=== PATIENT | male | born 1945 | race Caucasian/White ===

== ENCOUNTER → 2018-07-28 11:16 | Outpatient (CLI) | payer OTHER, SELFPAY ==
--- NOTE | 2018-07-28 11:19 | DI.US.S_ITS ---
PROCEDURE: US PERIPH VENOUS LOW EXTREM LT INDICATIONS: LOCALIZED SWELLING OF LEFT LEG/HX OF DVT TECHNIQUE: Real-time imaging, as well as color and pulse Doppler interrogation, were performed of the lower extremity deep veins from the inguinal ligament to the popliteal fossa. COMPARISON: [facility], , PVE UNILATERAL LEFT, 03/08/2017, 11:32. FINDINGS: The common femoral, femoral and popliteal veins are normally compressible, and free of intraluminal thrombus. Color and pulse Doppler demonstrate normal phasic intraluminal flow. There is normal augmentation response to distal compression maneuver. IMPRESSION: No evidence of deep vein thrombosis within the left lower extremity. Dictated by: Jonas Martinez M.D. on 07/28/2018 at 10:56 Approved by: Jonas Martinez M.D. on 07/28/2018 at 10:58
[2018-07-28 11:46] LABS: D Dimer 398 ng/mL (<230)
== END ==
PROVIDERS: Family Provider Family Medicine; PCP Family Medicine; Visit Provider Family Medicine
DX: R22.42 Localized swelling, mass and lump, left lower limb (principal); Z86.718 Personal history of other venous thrombosis and embolism
CPT/HCPCS: 85379; 93971

== ENCOUNTER 2018-11-24 12:45 | Day surgery (SDC) | payer OTHER, SELFPAY ==
[2018-11-24 13:11] VITALS: BP 184/92; PULSE 76; RESP 17; TEMP 36.3; O2SAT 99; BMI 30.1
[2018-11-24] MEDS: HYOSCYAMINE 0.125 MG TABLET PO (13:19)
[2018-11-24] MEDS: SODIUM CHLORIDE 0.9% 1,000 ML 200 ML IV (13:20)
--- NOTE | 2018-11-24 13:46 | PM.PREOP ---
Pre-operative Note Interval Note History & Physical reviewed/Exam performed by Physician: Yes Changes to H&P: No ASA Class (for procedural sedation): II
--- NOTE | 2018-11-24 13:46 | PM.OP.ENDO ---
Operative Date/Time/Diagnoses Date of procedure: 11/24/18 Time of procedure: 13:46 Pre-op diagnosis: 1. History of colon polyps 2. Screening for colon cancer Post-op diagnosis: other (Normal colonoscopy) Procedure & Clinicians Study performed: Colonoscopy Same procedure as scheduled: Yes Indications: 1. History of colon polyps 2. Screening for colon cancer Surgeon: Marybeth Daugherty Procedure Notes SCOAP/Timeout: 13:52 Procedure in detail: ENDOSCOPIST: Marybeth Daugherty MD Sedation RN: Aysha Lake RN Sedation start time: 1:52 p.m. Sedation and time: 2:21 p.m. PROCEDURE: Colonoscopy INDICATIONS: 1. History of colon polyps 2. Screening for colon cancer MEDICATION: Levsin 0.125 mg sublingual, incremental doses of Versed and fentanyl until appropriate level sedation achieved. ASA CLASS: 2 CECAL WITHDRAWAL TIME: 10 minutes COMPLICATIONS: None. EXTENT OF PROCEDURE: Cecum. QUALITY OF PREP: Good with portions of liquid stool. PROCEDURE: Prior to insertion of the colonoscope, a digital rectal examination was accomplished with circumferential palpation of the distal rectal mucosa without significant findings being noted. The high-definition colonoscope was passed into the rectum in the usual fashion and advanced over to the cecum without difficulty. The ileocecal valve, appendiceal stoma, and medial wall all could be inspected and no abnormalities were seen. ASCENDING COLON: As the colonoscope was withdrawn, care was taken to expose and inspect the haustral folds and no abnormalities were seen. HEPATIC FLEXURE: Normal no polyps, diverticula or other abnormalities. TRANSVERSE COLON: Normal no polyps, diverticula or other abnormalities. DESCENDING COLON: Normal no polyps, diverticula or other abnormalities. SIGMOID COLON: Normal no polyps, diverticula or other abnormalities. RECTUM: Normal. J maneuver was produced. There was no significant perianal disease. The J maneuver was broken. The remainder of the rectum was inspected and there was no external hemorrhoid disease. The scope was withdrawn. IMPRESSION: 1. Normal colonoscopy PLAN: 1. Repeat colonoscopy in 5 years secondary to history of colon polyps. The possibility of a missed lesion including a malignancy has been discussed with the patient previously. Potential alarm symptoms have been discussed and should be reported immediately. Scope withdrawal time: 10 Sedation minutes: 19 Specimen(s): none sent Complications: none Impression: As above Post-procedure Recommendations: Colonscopy in 5 years Follow up: as needed Disposition: PACU
[2018-11-24] MEDS: fentaNYL 250 MCG/5 ML INJ IV (14:23)
[2018-11-24] MEDS: MIDAZOLAM 5 MG/5 ML VIAL IV (14:23)
[2018-11-24 14:24] VITALS: BP 119/78; PULSE 67; RESP 20; TEMP 36.2; O2SAT 96
[2018-11-24 14:29] VITALS: BP 120/84; PULSE 78; RESP 12; O2SAT 95
[2018-11-24 14:34] VITALS: BP 128/91; PULSE 68; RESP 15; O2SAT 96
[2018-11-24 14:42] VITALS: BP 128/78; PULSE 63; RESP 15; TEMP 36.1; O2SAT 97
== END 2018-11-24 14:57 ==
LOC: ENDO 12:47
PROVIDERS: PCP Family Medicine; Visit Provider Student in an Organized Health Care Education/Training Program
PROC: 0DJD8ZZ Inspection of Lower Intestinal Tract, Via Natural or Artificial Opening Endoscopic (ICD-10-PCS; CPT 45378; principal; 2018-11-24 14:00)
DX: Z86.010 Personal history of colon polyps (principal)
CPT/HCPCS: 45378; J2250; J3010

== ENCOUNTER 2021-04-17 09:18 | Emergency (ER) | payer MEDICARE, OTHER, SELFPAY ==
[2021-04-17] VITALS (10 sets, daily range): BP systolic 137–158; BP diastolic 71–88; PULSE 68–77; RESP 16–18; TEMP 36.7; O2SAT 96–99
--- NOTE | 2021-04-17 10:08 | DI.CT.S_ITS ---
PROCEDURE: CT ABDOMEN PELVIS W CON INDICATIONS: Mid abdominal pain TECHNIQUE: After the administration of IV contrast, axial sections were acquired from the lung bases to the pubic symphysis. Coronal and sagittal reformats were performed. For radiation dose reduction, the following was used: automated exposure control, adjustment of mA and/or kV according to patient size. COMPARISON: None. FINDINGS: Image quality: Excellent. Lung bases: Unremarkable. Heart: Coronary artery calcifications. ABDOMEN: Liver: Unremarkable. Gallbladder: Unremarkable. Biliary ducts: Unremarkable. Pancreas: Unremarkable. Spleen: Unremarkable. Adrenal Glands: Unremarkable. Kidneys and Ureters: Unremarkable. Stomach and Bowel: Multiple dilated fluid-filled loops of small bowel. There is a gradual transition in the right lower quadrant. There is a small amount of free fluid in the pelvis. The colon is not distended. There are a few colonic diverticuli. The appendix is not dilated. Stomach is prominent. Peritoneum: No ascites. No pneumoperitoneum. Ventral Wall: No hernia. Abdominal Nodes: No retroperitoneal or mesenteric adenopathy by size criteria. Vessels: Aorta and inferior vena cava are normal in size. Mild calcified atherosclerotic plaque. PELVIS: Pelvic Organs: Unremarkable. Bladder: Unremarkable. Pelvic Nodes: No enlarged lymph nodes. Miscellaneous: No definite inguinal hernias are seen. Bones: Grade 1 anterolisthesis of L5 on S1. Bilateral L5 pars defect. No compression fracture. Right hip arthroplasty. Moderate left hip DJD. IMPRESSION: 1. Small bowel obstruction. 2. Trace reactive fluid in the pelvis. No pneumoperitoneum. Comment: Findings were discussed with Luciano Mireles at the time of dictation. Dictated by: Josh Valdes M.D. on 04/17/2021 at 11:54 Approved by: Josh Valdes M.D. on 04/17/2021 at 12:05
--- NOTE | 2021-04-17 10:09 | ED.ABDPAIN ---
HPI - Abdominal Pain General Chief Complaint: Abdominal Pain Stated Complaint: abd pain since last night Time Seen by Provider: 04/17/21 09:51 Source: patient Mode of arrival: Family Vehicle History of Present Illness HPI narrative: Patient here with . Onset periumbilical diffuse sharp pain 10:00 p.m. last night, 12 hours ago. Has improved significantly. [place] very uncomfortable last night. Did not sleep. Had diaphoresis and did vomit. No no no chest pain. No no no back pain. No syncope but feels very lightheaded. No prior abdominal surgical history other than colonoscopy. No history of heart attacks. No recent food intolerance. Related Data Home Medications Medication Instructions Recorded Confirmed amlodipine 5 mg tablet 5 mg PO DAILY 11/24/18 11/24/18 aspirin 81 mg tablet,delayed 81 mg PO DAILY 11/24/18 11/24/18 release (Aspirin Low Dose) metoprolol tartrate 25 mg tablet 25 mg PO DAILY 11/24/18 11/24/18 rosuvastatin 10 mg tablet 10 mg PO DAILY 11/24/18 11/24/18 Allergies Allergy/AdvReac Type Severity Reaction Status Date / Time lisinopril AdvReac Intermediate Cough Verified 11/24/18 13:05 BEE VENOM Allergy Severe CARRIES Uncoded 11/24/18 13:05 EPI PEN Review of Systems Review of Systems Narrative: GENERAL: Denies chills, fatigue, malaise, fever, sweats. HEENT: Denies sinus pain, ear pain, sore throat RESPIRATORY: Denies dyspnea, cough CARDIOVASCULAR: Denies chest pain, palpitations GASTROINTESTINAL: Positive for nausea, vomiting, abdominal pain : Denies dysuria, frequency, hematuria MUSCULOSKELETAL: denies muscle or bony pain SKIN: Denies rash, skin lesions NEUROLOGIC: Denies weakness, numbness ROS Unobtainable: All systems reviewed & are unremarkable except as noted in HPI and below Patient History Social History household members: spouse Smoking Status: Former smoker Smoking Status: Former smoker alcohol intake frequency: 0-2 drinks per day Alcohol type: beer and wine Substance Use Type: does not use Exam Narrative Exam Narrative: GENERAL: in no distress, not toxic not dyspneic HEAD: Normocephalic. EYES: Pupils equal round No scleral icterus. ENT: Mucous membranes moist. NECK: Trachea midline. CARDIOVASCULAR: Regular rate and rhythm without murmurs RESPIRATORY: Clear to auscultation. Breath sounds equal bilaterally. No wheezes, rales, or rhonchi. GASTROINTESTINAL: Abdomen soft, mild periumbilical and epigastric tenderness. No peritoneal signs. Bowel sounds present. No CVA tenderness. EXTREMITIES: No gross deformities. BACK: No flank tenderness. NEURO: AOx4. SKIN: Warm and dry PSYCH: Not anxious, is cooperative Initial Vital Signs Initial Vital Signs: Vital Signs Temperature 98.1 F 04/17/21 09:30 Pulse Rate 77 04/17/21 09:30 Respiratory Rate 18 04/17/21 09:30 Blood Pressure 158/81 H 04/17/21 09:30 Pulse Oximetry 98 04/17/21 09:30 Course Course Course Narrative: No new issues during course of stay Orders Ordered: ED Orders 04/17/21 09:44 EKG-12 Lead Stat 04/17/21 09:57 Complete Blood Count AUTO DIFF Stat Comprehensive Metabolic Panel Stat Lipase Stat Troponin & CK Cardiac Panel Stat 04/17/21 10:06 EKG-12 Lead Stat 04/17/21 10:08 CT abdomen pelvis w con Stat 04/17/21 12:37 COVID19 -Nasal swab/Pre-Proc Stat Discontinued Medications Al Hydrox/Mg Hydrox/Simethicone 20 ml/ Lidocaine HCl 15 ml 0 ml PO NOW ONE Stop: 04/17/21 10:09 Last Admin: 04/17/21 10:58 Dose: 30 ml Documented by: DANUTA Sodium Chloride (Normal Saline 0.9%) 1,000 mls @ 1,000 mls/hr IV BOLUS ONE Stop: 04/17/21 11:06 Last Infusion: 04/17/21 12:29 Dose: 0 mls/hr Documented by: Admin: 04/17/21 10:58 Dose: 1,000 mls/hr Documented by: DANUTA Pantoprazole Sodium (Pantoprazole 40 Mg Vial) 40 mg IV NOW ONE Stop: 04/17/21 10:08 Last Admin: 04/17/21 10:57 Dose: 40 mg Documented by: DANUTA Reevaluation(s) Reevaluation #1: Patient is symptom-free at this time. Reviewed results with patient as well as discussion with Dr. Thomas. They have seen and spoke with Dr. Thomas as well. They are comfortable with the plan. They desire discharge home. Return precautions reviewed with them. Time: 13:11 Reevaluation #2: Patient tolerated fluids by mouth without any difficulty. Time: 13:14 Consultations Consultation #1: Spoke with Dr. Valdes, radiologist. CT scan shows small bowel obstruction in right lower quadrant Time: 12:07 Consultation #2: General surgeon, Dr. Thomas has seen patient at bedside. He does not feel that it is bowel obstruction. Could be early appendicitis. However exam is reassuring at this time. He would like patient to have p.o. challenge and if able to manage and then discharge home and return immediately if any changes or worsening symptoms. He has seen and spoke with patient and . Time: 13:11 Vital Signs Vital signs: Vital Signs - 8 hr 04/17/21 09:30 04/17/21 09:35 04/17/21 10:00 Temperature 98.1 F Pulse Rate 77 75 73 Respiratory Rate 18 16 16 Blood Pressure 158/81 H 158/81 H 144/80 H Pulse Oximetry 98 98 98 04/17/21 10:30 04/17/21 11:00 04/17/21 11:30 Temperature Pulse Rate 70 71 73 Respiratory Rate 17 18 Blood Pressure 138/76 142/80 H Pulse Oximetry 96 97 97 04/17/21 11:53 04/17/21 12:00 04/17/21 12:30 Temperature Pulse Rate 70 68 70 Respiratory Rate 18 Blood Pressure 138/71 137/77 151/76 H Pulse Oximetry 97 97 99 04/17/21 13:00 Temperature Pulse Rate 77 Respiratory Rate Blood Pressure 154/88 H Pulse Oximetry 97 MDM - Abdominal Pain Differential Diagnosis Differential diagnosis: Likely abdominal pain, acute appendicitis, constipation, diverticulitis, gastroenteritis, pancreatitis and small bowel obstruction Lab Data Result diagrams: 04/17/21 09:57 04/17/21 09:57 Labs: Lab Results 04/17/21 04/17/21 04/17/21 Range/Units 09:57 09:57 09:57 WBC 11.0 (4.5-11.0) X10^3/uL RBC 4.60 (4.5-5.9) X10^6/uL Hgb 14.0 (13.5-17.5) g/dL Hct 42.7 (41-53) % MCV 92.9 (80-100) fL MCH 30.4 (26-34) PG MCHC 32.7 (30-36) % RDW 12.7 (11.6-14.8) % Plt Count 222 (150-400) X10^3/uL Neut % (Auto) 80.6 H (50-75) % Lymph % (Auto) 9.1 L (25-40) % Hickman % (Auto) 9.1 (3-14) % Eos % (Auto) 1.0 L (2-4) % Baso % (Auto) 0.2 (0-2) % Neut # (Auto) 8900 H (1723-0465) /uL Lymph # (Auto) 1000 L (1320-9212) /uL Hickman # (Auto) 1000 H (0-900) /uL Eos # (Auto) 100 (0-450) /uL Baso # (Auto) 0 (0-100) /uL Sodium 141 (137-145) mmol/L Potassium 4.5 (3.4-5.1) mmol/L Chloride 103 (98-107) mmol/L Carbon Dioxide 33 H (22-32) mmol/L BUN 22 H (9-20) mg/dL Creatinine 0.88 (0.66-1.25) mg/dL Estimated GFR > 60.0 (>60) mL/min BUN/Creatinine Ratio 25.0 H (6-22) Glucose 129 H (80-110) mg/dL Calcium 9.8 (8.4-10.2) mg/dL Total Bilirubin 0.6 (0.2-1.3) mg/dL AST 27 (17-59) IU/L ALT 30 (<50) IU/L Alkaline Phosphatase 76 (38-126) U/L Total Creatine Kinase 37 L (55-170) U/L CK-MB (CK-2) TNP CK-MB (CK-2) Rel Index TNP Troponin I < 0.012 (0.01-0.034) ng/mL Total Protein 7.9 (6.3-8.2) g/dL Albumin 4.6 (3.5-5.0) g/dL Globulin 3.3 (1.7-4.1) g/dL Albumin/Globulin Ratio 1.4 (1.0-2.8) Lipase 74 (23-300) U/L SARS-CoV-2 (PCR) (Negative) 04/17/21 Range/Units 12:37 WBC (4.5-11.0) X10^3/uL RBC (4.5-5.9) X10^6/uL Hgb (13.5-17.5) g/dL Hct (41-53) % MCV (80-100) fL MCH (26-34) PG MCHC (30-36) % RDW (11.6-14.8) % Plt Count (150-400) X10^3/uL Neut % (Auto) (50-75) % Lymph % (Auto) (25-40) % [place]ickman % (Auto) (3-14) % Eos % (Auto) (2-4) % Baso % (Auto) (0-2) % Neut # (Auto) (9912-9624) /uL Lymph # (Auto) (4372-9255) /uL Hickman # (Auto) (0-900) /uL Eos # (Auto) (0-450) /uL Baso # (Auto) (0-100) /uL Sodium (137-145) mmol/L Potassium (3.4-5.1) mmol/L Chloride (98-107) mmol/L Carbon Dioxide (22-32) mmol/L BUN (9-20) mg/dL Creatinine (0.66-1.25) mg/dL Estimated GFR (>60) mL/min BUN/Creatinine Ratio (6-22) Glucose (80-110) mg/dL Calcium (8.4-10.2) mg/dL Total Bilirubin (0.2-1.3) mg/dL AST (17-59) IU/L ALT (<50) IU/L Alkaline Phosphatase (38-126) U/L Total Creatine Kinase (55-170) U/L CK-MB (CK-2) CK-MB (CK-2) Rel Index Troponin I (0.01-0.034) ng/mL Total Protein (6.3-8.2) g/dL Albumin (3.5-5.0) g/dL Globulin (1.7-4.1) g/dL Albumin/Globulin Ratio (1.0-2.8) Lipase (23-300) U/L SARS-CoV-2 (PCR) Negative (Negative) Imaging Data CT scan - abdomen/pelvis: Radiologist's Impression: [address] [address] [address] Scan Report Signed Patient: Andrade Chicas MR#: [id number] : 1945 Acct:[id number] Age/Sex: 75 / M Date of Service: 04/17/21 Loc: ED Accession Number: [id number] ?? Procedure: CT abdomen pelvis w con Ordering Provider: Luciano Mireles MD PROCEDURE:? CT ABDOMEN PELVIS W CON ? INDICATIONS:? Mid abdominal pain ? TECHNIQUE:? After the administration of IV contrast, axial sections were acquired from the lung bases to the pubic symphysis.? Coronal and sagittal reformats were performed.? For radiation dose reduction, the following was used:? automated exposure control, adjustment of mA and/or kV according to patient size. ? COMPARISON:? None. ? FINDINGS:? Image quality:? Excellent.? ? Lung bases:? Unremarkable.? ? Heart:? Coronary artery calcifications. ? ? ABDOMEN: Liver:? Unremarkable.? ? Gallbladder:? Unremarkable.? ? Biliary ducts:? Unremarkable.? ? Pancreas:? Unremarkable.? ? Spleen:? Unremarkable.? ? Adrenal Glands:? Unremarkable.? ? Kidneys and Ureters:? Unremarkable.? ? ? Stomach and Bowel:? Multiple dilated fluid-filled loops of small bowel.? There is a gradual transition in the right lower quadrant.? There is a small amount of free fluid in the pelvis.? The colon is not distended.? There are a few colonic diverticuli.? The appendix is not dilated.? Stomach is prominent. Peritoneum:? No ascites.? No pneumoperitoneum.? ? Ventral Wall: ? No hernia.? Abdominal Nodes:? No retroperitoneal or mesenteric adenopathy by size criteria.? Vessels:? Aorta and inferior vena cava are normal in size.? Mild calcified atherosclerotic plaque.? ? PELVIS: Pelvic Organs:? Unremarkable.? ? Bladder:? Unremarkable.? ? Pelvic Nodes: No enlarged lymph nodes.? Miscellaneous: No definite inguinal hernias are seen. ? ? ? Bones:? Grade 1 anterolisthesis of L5 on S1.? Bilateral L5 pars defect.? No compression fracture.? Right hip arthroplasty.? Moderate left hip DJD. ? ? IMPRESSION:? 1. Small bowel obstruction. ? 2. Trace reactive fluid in the pelvis.? No pneumoperitoneum.? ? ? Comment: Findings were discussed with Luciano Mireles at the time of dictation. ? Dictated by: Josh Valdes M.D. on 04/17/2021 at 11:54 ? ? Approved by: Josh Valdes M.D. on 04/17/2021 at 12:05 ? ECG Data Interpretation: Sinus rhythm rate [address] elevation or depression MDM Narrative Medical decision making narrative: Appropriate for discharge home. Patient has been seen by general surgeon Dr. Thomas and he has reviewed CT scan and has examined the patient. Patient and agree with treatment plan and discharged home and observation at home and return precautions reviewed with them. Patient never had chest pain. Remains no chest pain while here. No repeat heart enzymes indicated. Onset over 12 hours ago. Discharge Plan Departure Patient Disposition: Home Clinical Impression: Abdominal pain Activity Restrictions/Additional Instructions: Return immediately if worse if any questions or concerns or if repeat episode of the same complaint. Otherwise see family doctor or call Dr. Thomas on Tuesday for re-evaluation. May continue home medications. Return if you develop any chest pain or trouble breathing or any back pain. Prescriptions: No Action amlodipine 5 mg Tablet 5 mg PO DAILY 0RF rosuvastatin 10 mg Tablet 10 mg PO DAILY 0RF metoprolol tartrate 25 mg Tablet 25 mg PO DAILY 0RF aspirin [Aspirin Low Dose] 81 mg Tablet,Delayed Release (Dr/Ec) 81 mg PO DAILY 0RF Referrals: Dg Thomas MD [Physician] - Andrade Ramírez MD [Primary Care Provider] -
[2021-04-17 10:32] LABS: Add Manual Diff / Slide Review NO; Basophils Absolute Auto 0 /uL (0-100); Basophils Percent Auto 0.2 % (0-2); Eosinophils Absolute Auto 100 /uL (0-450); Hematocrit 42.7 % (41-53); Lymphocytes Absolute Auto 1000 /uL (1100-4500); Lymphocytes Percent Auto 9.1 % (25-40); Mean Corpuscular HGB Conc 32.7 % (30-36); Mean Corpuscular Hemoglobin 30.4 PG (26-34); Mean Corpuscular Volume 92.9 fL (80-100); Monocytes Absolute Auto 1000 /uL (0-900); Monocytes Percent Auto 9.1 % (3-14); Neutrophils Absolute Auto 8900 /uL (1500-7000); Neutrophils Percent Auto 80.6 % (50-75); Platelet Count 222 X10^3/uL (150-400); Red Cell Distribution Width 12.7 % (11.6-14.8)
[2021-04-17 10:48] LABS: Alanine Aminotransferase 30 IU/L (<50); Albumin 4.6 g/dL (3.5-5.0); Albumin Globulin Ratio 1.4 (1.0-2.8); Alkaline Phosphatase 76 U/L (38-126); Aspartate Aminotransferase 27 IU/L (17-59); Bilirubin Total 0.6 mg/dL (0.2-1.3); Blood Urea Nitrogen 22 mg/dL (9-20); Calcium 9.8 mg/dL (8.4-10.2); Carbon Dioxide 33 mmol/L (22-32); Chloride 103 mmol/L (98-107); Estimated Glomerular Filt Rate > 60.0 mL/min (>60); Globulin 3.3 g/dL (1.7-4.1); Glucose 129 mg/dL (80-110); HEMOLYSIS < 15 (0-50); Lipase 74 U/L (23-300); Potassium 4.5 mmol/L (3.4-5.1); Sodium 141 mmol/L (137-145); Total Protein 7.9 g/dL (6.3-8.2)
[2021-04-17 10:49] LABS: Creatine Kinase 37 U/L (55-170)
[2021-04-17] MEDS: PANTOPRAZOLE 40 MG VIAL IV (10:57)
[2021-04-17] MEDS: MAG HYDROX/ALUMINUM/SIMETH SUS 20 ML, LIDOCAINE VISCOUS 2% 15 ML PO (10:58)
[2021-04-17] MEDS: SODIUM CHLORIDE 0.9% 1,000 ML 1000 ML IV (10:58)
[2021-04-17 11:00] LABS: Troponin I < 0.012 ng/mL (0.01-0.034)
[2021-04-17 12:53] LABS: COVID19 -Nasal RAPID Negative (Negative)
== END 2021-04-17 13:25 | disposition home or self-care (01) ==
PROVIDERS: Emergency Provider Emergency Medicine; PCP Family Medicine
DX: R10.33 Periumbilical pain (principal); R10.13 Epigastric pain; Z87.891 Personal history of nicotine dependence; Z20.822 Contact with and (suspected) exposure to COVID-19
CPT/HCPCS: 36415; 74177; 80053; 82550; 83690; 84484; 85025; 87635; 93005; 96361; 96374; 99284; C9803; C9113

== ENCOUNTER 2021-04-20 22:10 | Inpatient (IN) | payer MEDICARE, OTHER, SELFPAY ==
[2021-04-20 22:13] VITALS: BP 166/82; PULSE 60; RESP 16; TEMP 36.4; O2SAT 97; BMI 28.2
--- NOTE | 2021-04-20 22:13 | ED_ITS ---
HPI - Abdominal Pain General Chief Complaint: Abdominal Pain Stated Complaint: abd pain Time Seen by Provider: 04/20/21 22:13 History of Present Illness HPI narrative: 75-year-old male former smoker with history of hypertension and hyperlipidemia returns with his . He was seen and evaluated here just a few days ago after having the development of severe right-sided abdominal pain with nausea and liquidy stools. He had a thorough evaluation and CT suggesting small bowel obstruction on imaging, however he was evaluated by surgery at the bedside and thought not have obstruction. Patient was sent home and has been using a clear liquid diet. He states that he continues to have liquid stools and he will developed intense right upper quadrant pain 30-60 minutes after eating. He also has bilateral upper back pain without any obvious provocation, palliation or radiation. He denies any fever or chills. He has no chest pain or shortness of breath. Related Data Home Medications Medication Instructions Recorded Confirmed amlodipine 5 mg tablet 5 mg PO DAILY 11/24/18 11/24/18 aspirin 81 mg tablet,delayed 81 mg PO DAILY 11/24/18 11/24/18 release (Aspirin Low Dose) metoprolol tartrate 25 mg tablet 25 mg PO DAILY 11/24/18 11/24/18 rosuvastatin 10 mg tablet 10 mg PO DAILY 11/24/18 11/24/18 Allergies Allergy/AdvReac Type Severity Reaction Status Date / Time lisinopril AdvReac Intermediate Cough Verified 11/24/18 13:05 BEE VENOM Allergy Severe CARRIES Uncoded 11/24/18 13:05 EPI PEN Review of Systems Review of Systems Narrative: GENERAL: Denies chills, fatigue, malaise, fever, sweats. HEENT: Denies sinus pain, ear pain, sore throat, difficulty swallowing, dizziness. RESPIRATORY: Denies dyspnea, cough, wheezing, hemoptysis, sputum. CARDIOVASCULAR: Denies chest pain, palpitations, orthopnea, edema, GASTROINTESTINAL: See HPI : Denies dysuria, frequency, incontinence, hematuria, urinary retention. MUSCULOSKELETAL: See HPI SKIN: Denies rash, skin lesions, or other NEUROLOGIC: Denies weakness, headache, numbness, change in speech, confusion, seizures, incoordination. PSYCHIATRIC: No concerning psychosocial issues. 12 point review of systems is negative except for those stated above Patient History Social History household members: spouse Smoking Status: Former smoker Smoking Status: Former smoker alcohol intake frequency: 0-2 drinks per day Alcohol type: beer and wine Substance Use Type: does not use Exam Narrative Exam Narrative: GENERAL: [75 year old patient appears stated age. Well-developed patient, in mild distress. HEAD: Atraumatic. Normocephalic. EYES: Pupils equal round and reactive. Extraocular motions intact. No scleral icterus. No injection or drainage. ENT: Nose without bleeding, purulent drainage. Throat without erythema, tonsillar hypertrophy or exudate. Airway patent. NECK: Trachea midline. Non tender CARDIOVASCULAR: Regular rate and rhythm without murmurs, gallops, or rubs. RESPIRATORY: Clear to auscultation. Breath sounds equal bilaterally. No wheezes, rales, or rhonchi. GASTROINTESTINAL: Abdomen soft, moderately distended with reproducible pain in the right upper quadrant. Decreased bowel sounds throughout EXTREMITIES: No edema or joint tenderness. BACK: Nontender without deformity or crepitance. No flank tenderness. NEURO: AOx3. SKIN: No rash or erythema of visible areas Initial Vital Signs Initial Vital Signs: Vital Signs Temperature 97.5 F L 04/20/21 22:13 Pulse Rate 60 04/20/21 22:13 Respiratory Rate 16 04/20/21 22:13 Blood Pressure 166/82 H 04/20/21 22:13 Pulse Oximetry 97 04/20/21 22:13 Course Orders Ordered: ED Orders 04/20/21 22:24 US abdomen limited Stat 04/20/21 22:27 XR acute abdomen series Stat 04/20/21 22:28 Complete Blood Count AUTO DIFF Stat Comprehensive Metabolic Panel Stat Lactate (Lactic Acid) Stat Lipase Stat 04/20/21 22:40 COVID19 -Nasal swab/Pre-Proc Stat Discontinued Medications Sodium Chloride (Normal Saline 0.9%) 1,000 mls @ 1,000 mls/hr IV BOLUS ONE Stop: 04/20/21 23:12 Last Admin: 04/20/21 22:44 Dose: 1,000 mls/hr Documented by: APOLINAR Consultations Consultation #1: Dr. Adkins consulted and happy to be involved if and when needed, requests admission to medical team Consultation #2: Dr. Fernandez happy to accept patient on behalf of Dr. Tauxe. Requests bridging orders. Vital Signs Vital signs: Vital Signs - 8 hr 04/20/21 22:13 04/20/21 22:41 04/20/21 22:42 Temperature 97.5 F L Pulse Rate 60 58 L 58 L Respiratory Rate 16 Blood Pressure 166/82 H 136/63 Pulse Oximetry 97 96 96 04/20/21 23:00 04/20/21 23:30 04/21/21 00:00 Temperature Pulse Rate 54 L 57 L 56 L Respiratory Rate Blood Pressure 145/72 H 145/70 H 159/74 H Pulse Oximetry 98 98 99 04/21/21 00:30 04/21/21 01:00 04/21/21 01:30 Temperature Pulse Rate 53 L 57 L 58 L Respiratory Rate Blood Pressure 167/75 H 140/68 144/75 H Pulse Oximetry 98 97 96 MDM - Abdominal Pain Lab Data Result diagrams: 04/20/21 22:28 04/20/21 22:28 Labs: Lab Results 04/20/21 04/20/21 04/20/21 Range/Units 22:28 22:28 22:28 WBC 9.6 (4.5-11.0) X10^3/uL RBC 4.50 (4.5-5.9) X10^6/uL Hgb 13.7 (13.5-17.5) g/dL Hct 41.3 (41-53) % MCV 91.9 (80-100) fL MCH 30.6 (26-34) PG MCHC 33.2 (30-36) % RDW 12.5 (11.6-14.8) % Plt Count 214 (150-400) X10^3/uL Neut % (Auto) 71.1 (50-75) % Lymph % (Auto) 17.3 L (25-40) % [place] % (Auto) 10.0 (3-14) % Eos % (Auto) 1.1 L (2-4) % Baso % (Auto) 0.5 (0-2) % Neut # (Auto) 6800 (5955-9949) /uL Lymph # (Auto) 1700 (2397-1621) /uL [place] # (Auto) 1000 H (0-900) /uL Eos # (Auto) 100 (0-450) /uL Baso # (Auto) 0 (0-100) /uL Sodium 137 (137-145) mmol/L Potassium 4.1 (3.4-5.1) mmol/L Chloride 104 (98-107) mmol/L Carbon Dioxide 28 (22-32) mmol/L BUN 13 (9-20) mg/dL Creatinine 0.80 (0.66-1.25) mg/dL Estimated GFR > 60.0 (>60) mL/min BUN/Creatinine Ratio 16.3 (6-22) Glucose 115 H (80-110) mg/dL Lactate 0.7 (0.7-2.1) mmol/L Calcium 9.4 (8.4-10.2) mg/dL Total Bilirubin 0.7 (0.2-1.3) mg/dL AST 26 (17-59) IU/L ALT 26 (<50) IU/L Alkaline Phosphatase 59 (38-126) U/L Total Protein 7.6 (6.3-8.2) g/dL Albumin 4.4 (3.5-5.0) g/dL Globulin 3.2 (1.7-4.1) g/dL Albumin/Globulin Ratio 1.4 (1.0-2.8) Lipase 59 (23-300) U/L SARS-CoV-2 (PCR) (Negative) 04/20/21 Range/Units 22:40 WBC (4.5-11.0) X10^3/uL RBC (4.5-5.9) X10^6/uL Hgb (13.5-17.5) g/dL Hct (41-53) % MCV (80-100) fL MCH (26-34) PG MCHC (30-36) % RDW (11.6-14.8) % Plt Count (150-400) X10^3/uL Neut % (Auto) (50-75) % Lymph % (Auto) (25-40) % [place] % (Auto) (3-14) % Eos % (Auto) (2-4) % Baso % (Auto) (0-2) % Neut # (Auto) (6654-1272) /uL Lymph # (Auto) (8329-7079) /uL [place] # (Auto) (0-900) /uL Eos # (Auto) (0-450) /uL Baso # (Auto) (0-100) /uL Sodium (137-145) mmol/L Potassium (3.4-5.1) mmol/L Chloride (98-107) mmol/L Carbon Dioxide (22-32) mmol/L BUN (9-20) mg/dL Creatinine (0.66-1.25) mg/dL Estimated GFR (>60) mL/min BUN/Creatinine Ratio (6-22) Glucose (80-110) mg/dL Lactate (0.7-2.1) mmol/L Calcium (8.4-10.2) mg/dL Total Bilirubin (0.2-1.3) mg/dL AST (17-59) IU/L ALT (<50) IU/L Alkaline Phosphatase (38-126) U/L Total Protein (6.3-8.2) g/dL Albumin (3.5-5.0) g/dL Globulin (1.7-4.1) g/dL Albumin/Globulin Ratio (1.0-2.8) Lipase (23-300) U/L SARS-CoV-2 (PCR) Negative (Negative) Imaging Data Abdominal x-ray: Radiologist's Impression: [address] [address] XRay Report Signed Patient: Andrade Chicas MR#: [id number] : 1945 Acct:[id number] Age/Sex: 75 / M Date of Service: 04/20/21 Loc: ED Accession Number: [id number] ?? Procedure: XR acute abdomen series Ordering Provider: Barry Erazo D.O. PROCEDURE:? XR ACUTE ABDOMEN SERIES ? INDICATIONS:? Abdominal pain ? TECHNIQUE:? One view chest and two views of the abdomen were acquired.? ? COMPARISON:? [facility], CT, CT ABDOMEN PELVIS W CON, 04/17/2021, 11:16. ? FINDINGS:? ? Surgical changes and devices:? Right hip arthroplasty. ? Chest:? Lungs are clear.? Heart size is normal.? No pleural effusions.? No pneumoperitoneum.? ? Abdomen:? No significant change in moderate small bowel dilatation with air- fluid levels. ?No suspicious calcifications.? Visualized solid organ contours appear normal.? ? Bones:? No suspicious bony lesions.? ? IMPRESSION:? Allowing for differences in modality, no definite change in small- bowel obstruction. ? ? Dictated by: Douglas Davison M.D. on 04/20/2021 at 22:59 ? ? Approved by: Douglas Davison M.D. on 04/20/2021 at 22:59 ? MDM Narrative Medical decision making narrative: Patient returns for the 2nd time in the past few days. He had a very thorough examination including labs and danced imaging on the last visit and there was suspicion of bowel obstruction. After bedside evaluation by surgery and sure decision making they elected to try a course at home with bowel rest, clear liquids but patient became lightheaded and weak, and when he advance his diet his pain became significant. He returns tonight and has ongoing symptoms, his belly has become distended again, x-ray shows bowel obstruction. Due to the worsening after eating and location of his pain an ultrasound was obtained to rule out gallbladder disease which was unremarkable. Patient requires hospitalization for further evaluation and stabilization of his condition. Discharge Plan Departure Patient Disposition: Admitted As Inpatient Clinical Impression: Small bowel obstruction Admit Date/Time: 04/21/21 01:57 Admit Provider: Andrade Ramírez
--- NOTE | 2021-04-20 22:24 | DI.US.S_ITS ---
PROCEDURE: US ABDOMEN LIMITED INDICATIONS: severe RUQ pain, radiation to back, after eating TECHNIQUE: Real-time focused scanning was performed of the abdomen, with image documentation. COMPARISON: None. FINDINGS: Liver is within normal limits. Gallbladder is within normal limits. No biliary ductal dilatation. Pancreas not well seen. IMPRESSION: Limited negative examination. Dictated by: Douglas Davison M.D. on 04/21/2021 at 0:03 Approved by: Douglas Davison M.D. on 04/21/2021 at 0:04
--- NOTE | 2021-04-20 22:27 | DI.RAD.S_ITS ---
PROCEDURE: XR ACUTE ABDOMEN SERIES INDICATIONS: Abdominal pain TECHNIQUE: One view chest and two views of the abdomen were acquired. COMPARISON: [facility], CT, CT ABDOMEN PELVIS W CLARI, 04/17/2021, 11:16. FINDINGS: Surgical changes and devices: Right hip arthroplasty. Chest: Lungs are clear. Heart size is normal. No pleural effusions. No pneumoperitoneum. Abdomen: No significant change in moderate small bowel dilatation with air-fluid levels. No suspicious calcifications. Visualized solid organ contours appear normal. Bones: No suspicious bony lesions. IMPRESSION: Allowing for differences in modality, no definite change in small-bowel obstruction. Dictated by: Douglas Davison M.D. on 04/20/2021 at 22:59 Approved by: Douglas Davison M.D. on 04/20/2021 at 22:59
[2021-04-20 22:38] LABS: Add Manual Diff / Slide Review NO; Basophils Absolute Auto 0 /uL (0-100); Basophils Percent Auto 0.5 % (0-2); Eosinophils Absolute Auto 100 /uL (0-450); Eosinophils Percent Auto 1.1 % (2-4); Hematocrit 41.3 % (41-53); Hemoglobin 13.7 g/dL (13.5-17.5); Lymphocytes Absolute Auto 1700 /uL (1100-4500); Lymphocytes Percent Auto 17.3 % (25-40); Mean Corpuscular HGB Conc 33.2 % (30-36); Mean Corpuscular Hemoglobin 30.6 PG (26-34); Mean Corpuscular Volume 91.9 fL (80-100); Monocytes Absolute Auto 1000 /uL (0-900); Neutrophils Absolute Auto 6800 /uL (1500-7000); Neutrophils Percent Auto 71.1 % (50-75); Platelet Count 214 X10^3/uL (150-400); Red Cell Distribution Width 12.5 % (11.6-14.8); White Blood Cell Count 9.6 X10^3/uL (4.5-11.0)
[2021-04-20 22:41] VITALS: PULSE 58; O2SAT 96
[2021-04-20 22:42] VITALS: BP 136/63; PULSE 58; O2SAT 96
[2021-04-20] MEDS: SODIUM CHLORIDE 0.9% 1,000 ML 1000 ML IV (22:44)
[2021-04-20 22:45] LABS: Lactate (Lactic Acid) 0.7 mmol/L (0.7-2.1)
[2021-04-20 22:46] LABS: Alanine Aminotransferase 26 IU/L (<50); Albumin 4.4 g/dL (3.5-5.0); Albumin Globulin Ratio 1.4 (1.0-2.8); Alkaline Phosphatase 59 U/L (38-126); Aspartate Aminotransferase 26 IU/L (17-59); BUN Creatinine Ratio 16.3 (6-22); Bilirubin Total 0.7 mg/dL (0.2-1.3); Blood Urea Nitrogen 13 mg/dL (9-20); Calcium 9.4 mg/dL (8.4-10.2); Carbon Dioxide 28 mmol/L (22-32); Chloride 104 mmol/L (98-107); Estimated Glomerular Filt Rate > 60.0 mL/min (>60); Globulin 3.2 g/dL (1.7-4.1); Glucose 115 mg/dL (80-110); HEMOLYSIS < 15 (0-50); Lipase 59 U/L (23-300); Potassium 4.1 mmol/L (3.4-5.1); Sodium 137 mmol/L (137-145); Total Protein 7.6 g/dL (6.3-8.2)
[2021-04-20 23:00] VITALS: BP 145/72; PULSE 54; O2SAT 98
[2021-04-20 23:04] LABS: COVID19 -Nasal RAPID Negative (Negative)
[2021-04-20 23:30] VITALS: BP 145/70; PULSE 57; O2SAT 98
[2021-04-21] VITALS (12 sets, daily range): BP systolic 124–167; BP diastolic 68–85; PULSE 53–67; RESP 14–21; TEMP 36.5–37.1; O2SAT 94–100; BMI 28.2
--- NOTE | 2021-04-21 01:44 | PC.NURSE ---
pt resting on stretcher waiting for MD to return call to admit
[2021-04-21] MEDS: SODIUM CHLORIDE 0.9% 1,000 ML 125 ML IV ×2 (02:48→10:35)
--- NOTE | 2021-04-21 07:37 | DI.RAD.S_ITS ---
PROCEDURE: FL SMALL BOWEL FOLLOW THROUGH INDICATIONS: small bowel obstruction. Perform with gastrografin COMPARISON: [facility], CT, CT ABDOMEN PELVIS W CON, 04/17/2021, 11:16. FINDINGS: KUB: Preprocedural traffic sign supervisor film demonstrates a normal bowel gas pattern. No suspicious abdominal calcifications. Visualized solid organ contours appear normal. No suspicious bony abnormalities. Small bowel: There is mildly delayed transit time of barium through the small bowel with contrast identified in large bowel at 3 hours. Several small bowel loops in the left abdomen are mildly dilated to 3.9 centimeters. Mucosal folds are smooth and of normal thickness. No strictures, intraluminal masses, or extrinsic mass effects are noted. The terminal ileum is identified, and is normal in morphology. IMPRESSION: Mildly dilated loops of small bowel with passage of Gastrografin contrast material into the colon compatible with partial small bowel obstruction. Dictated by: Shakila Kiran MD, PhD on 04/21/2021 at 11:48 Approved by: Shakila Kiran MD, PhD on 04/21/2021 at 11:51
--- NOTE | 2021-04-21 08:37 | PM.CN ---
History of Present Illness Consult details Date Patient Seen: 04/21/21 Time Patient Seen: 10:20 Chief complaint: abd pain Narrative: 75-year-old man admitted for a small-bowel obstruction. He had abdominal pain over the last several days and associated bloating. Several days ago seen in ER for abdominal mervin with nausea and liquid stool, CT abdomen pelvis at that time demonstrated mildly distended stented loops of small bowel no von transition point. Returned to ER last night with persistent abdominal pain and nausea. Abdominal XR again demonstrated dilated loops of bowel. No previous abdominal surgery. No emesis has had small amount of stool per rectum. Meds Home Medications and Allergies Home Medications Medication Instructions Recorded Confirmed Type amlodipine 5 mg tablet 5 mg PO DAILY 11/24/18 04/21/21 History aspirin 81 mg tablet,delayed 81 mg PO DAILY 11/24/18 04/21/21 History release (Aspirin Low Dose) metoprolol tartrate 25 mg tablet 25 mg PO DAILY 11/24/18 04/21/21 History rosuvastatin 10 mg tablet 20 mg PO DAILY 11/24/18 04/21/21 History Allergies Allergy/AdvReac Type Severity Reaction Status Date / Time lisinopril AdvReac Intermediate Cough Verified 11/24/18 13:05 BEE VENOM Allergy Severe CARRIES Uncoded 11/24/18 13:05 EPI PEN Exam Vital Signs (past 8 hours): - 04/21/21 01:00 04/21/21 01:30 04/21/21 02:50 Temperature 97.7 F Pulse Rate 57 L 58 L 56 L Respiratory Rate 16 Blood Pressure 140/68 144/75 H 137/76 Pulse Oximetry 97 96 98 04/21/21 07:30 Temperature 97.8 F Pulse Rate 56 L Respiratory Rate Blood Pressure 124/71 Pulse Oximetry 96 Oxygen Delivery Method Room Air Oxygen Flow Rate 0 Narrative Exam Narrative: GENERAL: Adult male in no apparent distress HEENT: No scleral icterus CV: Regular rate, no peripheral edema LUNGS: No increased work of breathing. Patient speaks in full sentences without oxygen support. ABDOMEN: Soft, mildly distended no peritonitis NEURO: Nonfocal, normal strength throughout, SKIN: Warm and dry Objective Labs Result Diagrams: 04/20/21 22:28 04/20/21 22:28 Labs: Laboratory Results - last 24 hr 04/20/21 04/20/21 04/20/21 22:28 22:28 22:28 WBC 9.6 RBC 4.50 Hgb 13.7 Hct 41.3 MCV 91.9 MCH 30.6 MCHC 33.2 RDW 12.5 Plt Count 214 Neut % (Auto) 71.1 Lymph % (Auto) 17.3 L [place] % (Auto) 10.0 Eos % (Auto) 1.1 L Baso % (Auto) 0.5 Neut # (Auto) 6800 Lymph # (Auto) 1700 [place] # (Auto) 1000 H Eos # (Auto) 100 Baso # (Auto) 0 Sodium 137 Potassium 4.1 Chloride 104 Carbon Dioxide 28 BUN 13 Creatinine 0.80 Estimated GFR > 60.0 BUN/Creatinine Ratio 16.3 Glucose 115 H Lactate 0.7 Calcium 9.4 Total Bilirubin 0.7 AST 26 ALT 26 Alkaline Phosphatase 59 Total Protein 7.6 Albumin 4.4 Globulin 3.2 Albumin/Globulin Ratio 1.4 Lipase 59 SARS-CoV-2 (PCR) 04/20/21 22:40 WBC RBC Hgb Hct MCV MCH MCHC RDW Plt Count Neut % (Auto) Lymph % (Auto) [place] % (Auto) Eos % (Auto) Baso % (Auto) Neut # (Auto) Lymph # (Auto) [place] # (Auto) Eos # (Auto) Baso # (Auto) Sodium Potassium Chloride Carbon Dioxide BUN Creatinine Estimated GFR BUN/Creatinine Ratio Glucose Lactate Calcium Total Bilirubin AST ALT Alkaline Phosphatase Total Protein Albumin Globulin Albumin/Globulin Ratio Lipase SARS-CoV-2 (PCR) Negative PFSH Social History household members: spouse Tobacco & Substance Use Smoking Status: Former smoker Assessment & Plan Assessment and plan (1) Small bowel obstruction: Status: Acute Assessment & Plan narrative: 75-year-old man no prior abdominal surgery admitted with a partial small-bowel obstruction. No peritonitis, leukocytosis or fever, no immediate indication for surgical intervention Will proceed with a small-bowel follow-through study. -NPO IV fluids -NG tube if persistent emesis -Small bowel follow through study today, ordered Time Spent With Patient Critical Care time: I spent a total of [] minutes of critical care time on this patient's care today; this time is exclusive of procedural time.
--- NOTE | 2021-04-21 08:49 | P.HP_ITS ---
History of Present Illness History of Present Illness Date Patient Seen: 04/21/21 Time Patient Seen: 08:50 Date of Onset of Symptoms: 04/16/21 Chief complaint: abd pain Narrative: Patient is a 75-year-old male patient of Dr. Ramírez who presents with 5 day history of abdominal discomfort. Patient apparently started with vomiting and decreased flatus and bowel movements. He was getting abdominal pain through and after eating. Seemed to bloat. No fevers. Plus-minus chills. No blood in his stool. No blood in his vomit. No previous history of surgeries. Patient continued to feel like things were not doing well until he w as brought in on Tuesday for evaluation of increasing pain. At that time he was describing mostly pain in the center part of his abdomen. And swelling. CT scan at that time showed small-bowel obstruction on imaging he was advised by surgery who felt either could be admitted or sent home for trial at home. Patient thought he was doing better over Tuesday but then yesterday having increasing pain and bloating. With no follow or other changes in his bowel movements. He has had a little bit of diarrhea on Tuesday but has not had anything since. Not passing flatus. Patient had a negative colonoscopy on 11/24/2018 Past medical history significant for hypertension and hyperlipidemia. Past surgical history melanoma right lower abdomen. Years ago. No other changes. Occasional alcohol denies tobacco. Social history. . Retired CPA. Family history not significant. Patient History Family & Social History Social History: household members spouse Prior Living Arrangements House Safety & Behavioral: Feels Safe in Current Yes Environment Been Physically Hurt or No Threatened By a Person Suicidal Ideation Description None Tobacco & Substance use: Smoking Status Former smoker alcohol intake frequency holiday/special occasion Substance Use Type does not use Meds Home Medications and Allergies Home Medications Medication Instructions Recorded Confirmed Type amlodipine 5 mg tablet 5 mg PO DAILY 11/24/18 04/21/21 History aspirin 81 mg tablet,delayed 81 mg PO DAILY 11/24/18 04/21/21 History release (Aspirin Low Dose) metoprolol tartrate 25 mg tablet 25 mg PO DAILY 11/24/18 04/21/21 History rosuvastatin 10 mg tablet 20 mg PO DAILY 11/24/18 04/21/21 History Allergies Allergy/AdvReac Type Severity Reaction Status Date / Time lisinopril AdvReac Intermediate Cough Verified 11/24/18 13:05 BEE VENOM Allergy Severe CARRIES Uncoded 11/24/18 13:05 EPI PEN Review of Systems Review of Systems Narrative: All negative except above Exam Vital Signs (past 8 hours): - 04/21/21 01:00 04/21/21 01:30 04/21/21 02:50 Temperature 97.7 F Pulse Rate 57 L 58 L 56 L Respiratory Rate 16 Blood Pressure 140/68 144/75 H 137/76 Pulse Oximetry 97 96 98 04/21/21 07:30 Temperature 97.8 F Pulse Rate 56 L Respiratory Rate Blood Pressure 124/71 Pulse Oximetry 96 Oxygen Delivery Method Room Air Oxygen Flow Rate 0 Narrative Exam Narrative: Alert smiling elderly male lying in bed no acute distress. Skin without jaundice or at other abnormality. Normal turgor. No rash. Mucous membranes moist. Neck supple without adenopathy JVD or bruits. Lungs are clear. Heart regular rate and rhythm. Abdomen is not distended but decreased bowel sounds. Minimal tenderness diffuse. No rebound guarding no hepatosplenomegaly no masses. Extremities without cyanosis clubbing edema. Neurologic exam is nonfocal. Objective Labs Result Diagrams: 04/20/21 22:28 04/20/21 22:28 Labs: Laboratory Results - last 24 hr 04/20/21 04/20/21 04/20/21 22:28 22:28 22:28 WBC 9.6 RBC 4.50 Hgb 13.7 Hct 41.3 MCV 91.9 MCH 30.6 MCHC 33.2 RDW 12.5 Plt Count 214 Neut % (Auto) 71.1 Lymph % (Auto) 17.3 L [place] % (Auto) 10.0 Eos % (Auto) 1.1 L Baso % (Auto) 0.5 Neut # (Auto) 6800 Lymph # (Auto) 1700 [place] # (Auto) 1000 H Eos # (Auto) 100 Baso # (Auto) 0 Sodium 137 Potassium 4.1 Chloride 104 Carbon Dioxide 28 BUN 13 Creatinine 0.80 Estimated GFR > 60.0 BUN/Creatinine Ratio 16.3 Glucose 115 H Lactate 0.7 Calcium 9.4 Total Bilirubin 0.7 AST 26 ALT 26 Alkaline Phosphatase 59 Total Protein 7.6 Albumin 4.4 Globulin 3.2 Albumin/Globulin Ratio 1.4 Lipase 59 SARS-CoV-2 (PCR) 02/28/22 22:40 WBC RBC Hgb Hct MCV MCH MCHC RDW Plt Count Neut % (Auto) Lymph % (Auto) [place] % (Auto) Eos % (Auto) Baso % (Auto) Neut # (Auto) Lymph # (Auto) [place] # (Auto) Eos # (Auto) Baso # (Auto) Sodium Potassium Chloride Carbon Dioxide BUN Creatinine Estimated GFR BUN/Creatinine Ratio Glucose Lactate Calcium Total Bilirubin AST ALT Alkaline Phosphatase Total Protein Albumin Globulin Albumin/Globulin Ratio Lipase SARS-CoV-2 (PCR) Negative Assessment & Plan Assessment & Plan narrative: Problem 1. Small bowel obstruction. Interesting that he has had no previous surgery no significant reason for this to developed. Patient certainly is not surgical at this time. He has of pretty benign abdomen but has proven over the last 5 days that he is incapable of eating secondary to pain and vomiting. Surgical consult has been already present and we appreciate that. He is getting a Gastrografin scan today and will see what that shows. We discussed with patient that he probably will be here for a couple days. And that it will all depend on how quickly his issue resolves. Always a possibility that if it does not resolve may need exploratory laparotomy. He understands questions answered. Dehydration. Very mild but NPO for now. Probably will be for the next few days. Will continue IV hydration. I do not think we have to start nutritional support at this time. But will follow. Hypertension. Stable will continue usual medicines with small sips of fluid. History of palpitations. On metoprolol doing well. Will follow. Continue metoprolol. Hyperlipidemia. Will hold cholesterol medicine. No need for that now and can restart at discharge. DVT prophylaxis. Will add Lovenox. Code status. Full. Disposition. Suspect patient will be here for the next couple days will have to make sure he can tolerate p.o. and will depend on what we find with a Gastrografin scan and where he gets bowel function back he understands questions answered Greater than 35 minutes spent Time Spent With Patient Critical Care time: I spent a total of [] minutes of critical care time on this patient's care today; this time is exclusive of procedural time.
[2021-04-21] MEDS: AMLODIPINE 5 MG TABLET PO (10:35)
[2021-04-21] MEDS: METOPROLOL IR 25 MG TABLET PO (10:35)
--- NOTE | 2021-04-21 16:03 | CM.DANOTE ---
DCP Assessment Patient is 75 y/o male who presented to this hospital due to concern for abdominal pain. Per xray, patient presents with obstructed bowel. Patient has PCP Dr. Ramírez and medicare & insurance. Patient presents as A/Ox4, in good spirits. Present in room is patient's . Patient denies discharge needs upon d/c and states he is looking forward to going home. Patient is independent with ADLs and resides at home with in [facility]. Patient endorses he would like PCP/provider to discuss appropriate foods to eat and not to eat upon d/c to prevent bowel obstruction issues in the future, patient states he will discuss this with Dr. Farfan upon his return to patient's room this evening. Plan: Patient to d/c to home with when medically clear. VIRIDIANA Calabrese Discharge Planning/Care Management CM Discharge Assessment Start: 04/21/21 16:01 Freq: Status: Active Protocol: Document 04/21/21 16:01 LN (Rec: 04/21/21 16:03 LN [id number]) Discharge Planning Assessment Assigned [employer] VIRIDIANA Arroyo Advance Directives? Yes Advance Directives on File Yes History Provided By Patient,Medical Record Has Patient been admitted in last 30 No days? Prior Living Arrangements House Household Members spouse Type of transportation used prior to Drives own vehicle admit Independent with ADL's Yes Is patient alert and oriented? Yes Please Provide Date Initial DC 04/21/21 Assessment Was Performed
[2021-04-22 03:34] VITALS: BP 124/68; PULSE 63; RESP 16; TEMP 36.7; O2SAT 98
[2021-04-22 05:22] LABS: Add Manual Diff / Slide Review NO; Basophils Absolute Auto 100 /uL (0-100); Basophils Percent Auto 0.8 % (0-2); Eosinophils Absolute Auto 100 /uL (0-450); Hematocrit 37.8 % (41-53); Hemoglobin 12.6 g/dL (13.5-17.5); Lymphocytes Absolute Auto 1700 /uL (1100-4500); Lymphocytes Percent Auto 23.7 % (25-40); Mean Corpuscular HGB Conc 33.4 % (30-36); Mean Corpuscular Hemoglobin 30.7 PG (26-34); Mean Corpuscular Volume 91.8 fL (80-100); Monocytes Absolute Auto 700 /uL (0-900); Monocytes Percent Auto 9.7 % (3-14); Neutrophils Absolute Auto 4500 /uL (1500-7000); Neutrophils Percent Auto 63.8 % (50-75); Platelet Count 190 X10^3/uL (150-400); Red Blood Cell Count 4.12 X10^6/uL (4.5-5.9); Red Cell Distribution Width 12.5 % (11.6-14.8)
[2021-04-22 05:29] LABS: Blood Urea Nitrogen 12 mg/dL (9-20); Calcium 8.7 mg/dL (8.4-10.2); Carbon Dioxide 27 mmol/L (22-32); Chloride 106 mmol/L (98-107); Estimated Glomerular Filt Rate > 60.0 mL/min (>60); Glucose 89 mg/dL (80-110); HEMOLYSIS < 15 (0-50); Potassium 4.2 mmol/L (3.4-5.1); Sodium 137 mmol/L (137-145)
[2021-04-22 08:17] VITALS: BP 127/71; PULSE 62; RESP 16; TEMP 37.2; O2SAT 97
[2021-04-22] MEDS: AMLODIPINE 5 MG TABLET PO (08:29)
[2021-04-22] MEDS: ENOXAPARIN 40 MG/0.4 ML SYRINGE SUBCUT (08:29)
[2021-04-22] MEDS: METOPROLOL IR 25 MG TABLET PO (08:30)
--- NOTE | 2021-04-22 09:15 | PM.DS.1 ---
History of Present Illness History of Present Illness Date Patient Seen: 04/22/21 Time Patient Seen: 09:15 Chief complaint: abd pain Narrative: Feeling better this morning able to eat a full breakfast now contemplating imminent bowel movement. Feels back to baseline ready to go home. Discharge Providers Provider Date of admission: 04/21/21 01:57 Discharge Date: 04/22/21 Primary care physician: Andrade Ramírez MD Consults: 04/21/21 02:13 Consult to General Surgery Urgent Comment: Consulting Provider: Bill Adkins Reason for consultation: bowel obstruction Has provider been notified: Yes 04/21/21 02:24 Consult to Dietitian, Adult Routine Comment: Reason For Exam: wt loss d/t change in bowel habits Discharge provider: Andrade Ramírez MD Summary Hospital Course Discharge Diagnosis: small bowel obstruction, acute essential hypertension, controlled, present on admission hyperlipidemia controlled present on admission Hospital Course: admitted yesterday with acute abdominal pain and SBO, tracked with gastrografin had good BM able to resume regular diet will f/u with pcp Status at Discharge Cognitive/behavioral status at discharge: at baseline, oriented Functional status at discharge: independent ambulation Overall status at discharge: patient is back to baseline Exam Vital Signs (past 8 hours): - 04/22/21 03:34 04/22/21 08:17 Temperature 98.1 F 98.9 F Pulse Rate 63 62 Respiratory Rate 16 16 Blood Pressure 124/68 127/71 Pulse Oximetry 98 97 Oxygen Delivery Method Room Air Oxygen Flow Rate 0 Narrative Exam Narrative: laying in bed with at bedside Const General: cooperative and healthy appearing Neck Neck: normal visual inspection, full ROM and supple Resp Effort & Inspection: normal respiratory effort Auscultation: clear to auscultation bilaterally Cardio Rate: regular rate Rhythm: regular rhythm GI Inspection: normal to inspection Palpation: soft Auscultation: normal bowel sounds Other: nontender Skin General: no rashes or lesions noted Neuro General: patient alert, patient awake, patient oriented x3 and CN's II-XI intact bilaterally Extrem General: normal to inspection and full ROM Psych Appearance: grossly normal Objective Labs Result Diagrams: 04/22/21 05:10 04/22/21 05:10 Labs: Laboratory Results - last 24 hr 04/22/21 04/22/21 05:10 05:10 WBC 7.0 RBC 4.12 L Hgb 12.6 L Hct 37.8 L MCV 91.8 MCH 30.7 MCHC 33.4 RDW 12.5 Plt Count 190 Neut % (Auto) 63.8 Lymph % (Auto) 23.7 L [place] % (Auto) 9.7 Eos % (Auto) 2.0 Baso % (Auto) 0.8 Neut # (Auto) 4500 Lymph # (Auto) 1700 [place] # (Auto) 700 Eos # (Auto) 100 Baso # (Auto) 100 Sodium 137 Potassium 4.2 Chloride 106 Carbon Dioxide 27 BUN 12 Creatinine 0.80 Estimated GFR > 60.0 BUN/Creatinine Ratio 15.0 Glucose 89 Calcium 8.7 PFSH Social History household members: spouse Smoking Status: Former smoker Discharge Assessment & Plan Assessment and Plan Assessment: #SBO resolved, f/u with PCP as outpt. no etiology evident however pt was sick with chills 2 weeks previously. #Dehydration. s/p NPO back to regular diet encourage hydration PO #Hypertension.? Stable resume home meds #History of palpitations Contineu metoprolol #Hyperlipidemia.? restart home statin Code status.? Full.? dispo: home to f/u with PCP Discharge Plan Discharge Plan Patient Disposition: Home Discharge orders & Medications Prescriptions: Continued amlodipine 5 mg Tablet 5 mg PO DAILY 0RF rosuvastatin 10 mg Tablet 20 mg PO DAILY 0RF metoprolol tartrate 25 mg Tablet 25 mg PO DAILY 0RF aspirin [Aspirin Low Dose] 81 mg Tablet,Delayed Release (Dr/Ec) 81 mg PO DAILY 0RF Follow up/Referrals: Andrade Ramírez MD [Primary Care Provider] - Diet/Activity/Treatments Diet: Diet as Tolerated Skin/Wound/Dressing Care Report to your healthcare provider any signs of infection, such as:: increased pain Discharge Data Primary Care Provider: Andrade Ramírez
--- NOTE | 2021-04-22 10:21 | PC.NURSE ---
Pt is A&OX3, pleasant with VSS, afebrile on RA. He denies any pain or nausea. He is able to tolerate 100% of breakfast and reports he is ready to discharge home. He is able to ambulate with steady gait. MD at bedside clearing patient for discharge home. He verbalizes understanding of his discharge and follow up instructions. The [employer] escorts him via wheel chair to private vehicle with all of his belongings and with his at approximately 10 a.m.
== END 2021-04-22 10:00 | disposition home or self-care (01) | DRG 390 ==
LOC: ED 04-21 00:06 → AC 04-21 01:58
PROVIDERS: Family Medicine; Admitting Provider Family Medicine; Emergency Provider Emergency Medicine; PCP Family Medicine; Referring Provider Emergency Medicine; Visit Provider Family Medicine
DX: K56.600 Partial intestinal obstruction, unspecified as to cause (principal); E86.0 Dehydration; I10 Essential (primary) hypertension; E78.5 Hyperlipidemia, unspecified; Z20.822 Contact with and (suspected) exposure to COVID-19; Z87.891 Personal history of nicotine dependence; Z86.79 Personal history of other diseases of the circulatory system
CPT/HCPCS: 36415; 74022; 74250; 76705; 80048; 80053; 83605; 83690; 85025; 87635; 96360; 96361; 99232; 99284; C9803; J1650

== ENCOUNTER 2021-09-19 07:47 | Emergency (ER) | payer MEDICARE, OTHER, SELFPAY ==
[2021-04-21 02:18] VITALS: BMI 28.2
[2021-09-19] VITALS (7 sets, daily range): BP systolic 134–163; BP diastolic 69–77; PULSE 44–58; RESP 14–27; TEMP 36.1–36.6; O2SAT 97–99; BMI 28.7
[2021-09-19 08:33] LABS: Add Manual Diff / Slide Review NO; Basophils Absolute Auto 0 /uL (0-100); Basophils Percent Auto 0.5 % (0-2); Eosinophils Absolute Auto 100 /uL (0-450); Eosinophils Percent Auto 1.8 % (2-4); Hematocrit 38.4 % (41-53); Hemoglobin 13.3 g/dL (13.5-17.5); Lymphocytes Absolute Auto 1300 /uL (1100-4500); Mean Corpuscular HGB Conc 34.7 % (30-36); Mean Corpuscular Hemoglobin 32.4 PG (26-34); Mean Corpuscular Volume 93.3 fL (80-100); Monocytes Absolute Auto 700 /uL (0-900); Monocytes Percent Auto 12.4 % (3-14); Neutrophils Absolute Auto 3800 /uL (1500-7000); Neutrophils Percent Auto 63.3 % (50-75); Platelet Count 198 X10^3/uL (150-400); Red Blood Cell Count 4.12 X10^6/uL (4.5-5.9); Red Cell Distribution Width 13.4 % (11.6-14.8); White Blood Cell Count 5.9 X10^3/uL (4.5-11.0)
[2021-09-19 08:39] LABS: Alanine Aminotransferase 19 IU/L (<50); Albumin 4.2 g/dL (3.5-5.0); Albumin Globulin Ratio 1.5 (1.0-2.8); Alkaline Phosphatase 59 U/L (38-126); Aspartate Aminotransferase 26 IU/L (17-59); BUN Creatinine Ratio 26.2 (6-22); Bilirubin Total 0.7 mg/dL (0.2-1.3); Blood Urea Nitrogen 22 mg/dL (9-20); Calcium 9.1 mg/dL (8.4-10.2); Carbon Dioxide 27 mmol/L (22-32); Chloride 107 mmol/L (98-107); Estimated Glomerular Filt Rate > 60 mL/min (>60); Globulin 2.8 g/dL (1.7-4.1); Glucose 109 mg/dL (80-110); HEMOLYSIS 18 (0-50); Potassium 4.5 mmol/L (3.4-5.1); Sodium 140 mmol/L (137-145)
--- NOTE | 2021-09-19 08:39 | ED_ITS ---
HPI - Extremity Problem General Chief complaint: Extremity Problem,Nontraumatic Stated complaint: Left wrist pain/weakness, headache/neck pain Time Seen by Provider: 09/19/21 08:08 Source: patient Mode of arrival: Family Vehicle Limitations: no limitations History of Present Illness HPI Narrative: This is a 76-year-old male who comes with complaint left wrist pain. Patient states about a week ago he was gardening he felt snap in his wrist he developed bruising and swelling which has improved but he is had persistent pain and discomfort particularly with movement and feels like his hand is still a little swollen. Denies any numbness or tingling. He states he wears a brace during the day feels okay but overnight when he takes it off he will often be awakened in the middle night with pain. He is tried Aleve with minimal improvement. Patient states he is had some tingling in his right hand in the past but does not have any numbness or tingling in the left. He states cool things feel better on the area. He denies any lightheadedness, no passing out, no chest pain or shortness of breath no other GI or urinary symptoms. He is on aspirin, amlodipine, metoprolol rosuvastatin. 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 He is allergic to wasp but no known drug allergies. No tobacco, alcohol or illicit. His primary care is Dr. Ramírez. Related Data Home Medications Medication Instructions Recorded Confirmed amlodipine 5 mg tablet 5 mg PO DAILY 11/24/18 04/21/21 aspirin 81 mg tablet,delayed 81 mg PO DAILY 11/24/18 04/21/21 release (Bartolo Low Dose Aspirin) metoprolol tartrate 25 mg tablet 25 mg PO DAILY 11/24/18 04/21/21 rosuvastatin 10 mg tablet 20 mg PO DAILY 11/24/18 04/21/21 Allergies Allergy/AdvReac Type Severity Reaction Status Date / Time lisinopril AdvReac Intermediate Cough Verified 11/24/18 13:05 BEE VENOM Allergy Severe CARRIES Uncoded 11/24/18 13:05 EPI PEN Review of Systems Review of Systems ROS Unobtainable: All systems reviewed & are unremarkable except as noted in HPI and below Patient History Social History household members: spouse Smoking Status: Former smoker Smoking Status: Former smoker alcohol intake frequency: holidays/special occasions only Alcohol type: beer and wine Substance Use Type: does not use Exam Narrative Exam Narrative: GENERAL: Alert and oriented x three, male in mild distress HEENT: Head normocephalic, atraumatic, EOMI, pupils reactive, face symmetric, moist mucous membranes NECK: Supple, full range of motion CARDIOVASCULAR: Bradycardic but regular rate and rhythm without murmurs, rubs or gallops. RESPIRATORY: Breath sounds equal bilaterally, no wheezes rales or rhonchi. ABDOMEN: Soft, nontender. Normoactive bowel sounds all 4 quadrants. No guarding or rebound, rigidity, no mass : No CVA tenderness EXTREMITIES: Normal range of motion, no clubbing or edema. Neurovascularly intact. No bony tenderness of the last wrist. Patient does have pain particularly with extreme flexion, only mild pain with extension Tinel's test is negative. Patient has some mild weakness with abduction of his fingers but normal strength with abduction, normal flexion extension. NEUROLOGICAL: Cranial nerves II through XII grossly intact. Moving all extremities SKIN: Warm, dry, no petechiae, no rashes or lesions. Initial Vital Signs Initial Vital Signs: Vital Signs Pulse Rate 58 L 09/19/21 08:00 Blood Pressure 163/77 H 09/19/21 08:00 Pulse Oximetry 97 09/19/21 08:00 Course Orders Ordered: ED Orders 09/19/21 08:10 CMP [Comprehensive Metabolic Panel] Stat Complete Blood Count AUTO DIFF Stat Troponin & CK Cardiac Panel Stat 09/19/21 08:19 EKG-12 Lead Stat 09/19/21 09:18 XR wrist LT min 3V Stat Vital Signs Vital signs: Vital Signs - 8 hr 09/19/21 08:12 Temperature 97.0 F L Pulse Rate 46 L Respiratory Rate 19 Blood Pressure 163/77 H Pulse Oximetry 99 Oxygen Delivery Method Room Air MDM - Extremity (Nontraumatic) Lab Data Result diagrams: 09/19/21 08:10 09/19/21 08:10 Labs: Lab Results 09/19/21 09/19/21 09/19/21 Range/Units 08:10 08:10 08:10 WBC 5.9 (4.5-11.0) X10^3/uL RBC 4.12 L (4.5-5.9) X10^6/uL Hgb 13.3 L (13.5-17.5) g/dL Hct 38.4 L (41-53) % MCV 93.3 (80-100) fL MCH 32.4 (26-34) PG MCHC 34.7 (30-36) % RDW 13.4 (11.6-14.8) % Plt Count 198 (150-400) X10^3/uL Neut % (Auto) 63.3 (50-75) % Lymph % (Auto) 22.0 L (25-40) % [place] % (Auto) 12.4 (3-14) % Eos % (Auto) 1.8 L (2-4) % Baso % (Auto) 0.5 (0-2) % Neut # (Auto) 3800 (9062-3415) /uL Lymph # (Auto) 1300 (9460-4040) /uL [place] # (Auto) 700 (0-900) /uL Eos # (Auto) 100 (0-450) /uL Baso # (Auto) 0 (0-100) /uL Sodium 140 (137-145) mmol/L Potassium 4.5 (3.4-5.1) mmol/L Chloride 107 (98-107) mmol/L Carbon Dioxide 27 (22-32) mmol/L BUN 22 H (9-20) mg/dL Creatinine 0.84 (0.66-1.25) mg/dL Estimated GFR > 60 (>60) mL/min BUN/Creatinine Ratio 26.2 H (6-22) Glucose 109 (80-110) mg/dL Calcium 9.1 (8.4-10.2) mg/dL Total Bilirubin 0.7 (0.2-1.3) mg/dL AST 26 (17-59) IU/L ALT 19 (<50) IU/L Alkaline Phosphatase 59 (38-126) U/L Total Creatine Kinase 51 L (55-170) U/L CK-MB (CK-2) TNP CK-MB (CK-2) Rel Index TNP Troponin I < 0.012 (0.01-0.034) ng/mL Total Protein 7.0 (6.3-8.2) g/dL Albumin 4.2 (3.5-5.0) g/dL Globulin 2.8 (1.7-4.1) g/dL Albumin/Globulin Ratio 1.5 (1.0-2.8) ECG Data Attestation EKG: I personally reviewed and interpreted this ECG as follows: Interpretation: Sinus bradycardia with first-degree AV block rate of 47 NE 238 QRS of 94 and QTC 373. No acute ST changes appreciated. Patient has prior from 04/17/2021 which shows first-degree AV block with a rate of [address] changes noted. MDM Narrative Medical decision making narrative: This is a 76-year-old male with recent traumatic injury patient was gardening and felt a snap in his wrist and developed bruising and has had persistent pain in the past week since. He does not have bony tenderness my suspicion for fracture is low but x-ray was obtained to evaluate for joint spaces and rule out any fracture. Patient is noted to be bradycardic, he is asymptomatic he is on a calcium channel ilene and beta ilene. Patient's hemoglobin is slightly low but stable. No electrolyte abnormalities or renal dysfunction. Patient has prior EKG which shows a first-degree AV block although at that time his rate was in the 70s. Family and patient state he typically is in the 70s. We may have him hold his beta-ilene for short period of time if he is feeling symptomatic. Discharge Plan Departure Patient Disposition: Home Clinical Impression: Injury of left wrist, Bradycardia Activity Restrictions/Additional Instructions: Follow-up with orthopedic surgery or your primary care physician. Please call for an appointment. Referral is included below. If you have persisting symptoms for another week they may wish to obtain further imaging such as CT or MRI. I suspect you may have injured a tendon or ligament in your wrist. You may take naproxen 220mg every 12 hours. If needed for pain you can also take Tylenol up to a 1000 mg every 6 hours. Would recommend continuing to use your brace during the day and you can wear at nighttime if needed. Elevated affected body part to decrease swelling. OK to use ice pack on the affected body part. Use for 15-20 minutes each time, for 5-6x per day. If you develop worsening pain, numbness, tingling, discoloration of the affected body part, adjust the brace, and either see your doctor for an urgent re-assessment, or return to the Emergency Department. Return to the Emergency Department for any new or worsening symptoms. Your heart rate is low today if you are feeling symptomatic I would recommend holding your metoprolol for short period of time and monitoring your heart rate and blood pressure. Please return for new dizziness, passing out, chest pain or shortness of breath, persistent vomiting, new swelling in her extremities or other new or concerning symptoms. Prescriptions: No Action amlodipine 5 mg Tablet 5 mg PO DAILY rosuvastatin 10 mg Tablet 20 mg PO DAILY metoprolol tartrate 25 mg Tablet 25 mg PO DAILY aspirin [Bartolo Low Dose Aspirin] 81 mg Tablet,Delayed Release (Dr/Ec) 81 mg PO DAILY Referrals: Liz Cadet MD [Physician] - Andrade Ramírez MD [Primary Care Provider] - Visit Report Forms: Patient Portal/API
--- NOTE | 2021-09-19 09:18 | DI.RAD.S_ITS ---
PROCEDURE: XR WRIST LT MIN 3V INDICATIONS: left wrist injury one week ago. felt snap, persistent pain TECHNIQUE: < 3 > views of the wrist were acquired. COMPARISON: None. FINDINGS: Bones: No acute fracture or dislocation. Mild scattered osteoarthritis. No suspicious osseous lesion. Scaphoid view: No fracture detected in the scaphoid. Soft tissues: No suspicious soft tissue calcifications. IMPRESSION: No acute fracture or dislocation. If there is high concern for occult injury, consider CT or MRI. Dictated by: Aldo Batres M.D. on 09/19/2021 at 9:39 Approved by: Aldo Batres M.D. on 09/19/2021 at 9:42
[2021-09-19 09:20] LABS: Creatine Kinase 51 U/L (55-170)
[2021-09-19 09:33] LABS: Troponin I < 0.012 ng/mL (0.01-0.034)
== END 2021-09-19 10:08 | disposition home or self-care (01) ==
PROVIDERS: Emergency Provider Emergency Medicine; PCP Family Medicine
DX: S69.92XA Unspecified injury of left wrist, hand and finger(s), initial encounter (principal); R00.1 Bradycardia, unspecified
CPT/HCPCS: 36415; 73110; 80053; 82550; 84484; 85025; 93005; 93041; 99284

== ENCOUNTER → 2022-01-25 12:02 | Outpatient (CLI) | payer MEDICARE, OTHER, SELFPAY ==
[2021-04-21 02:18] VITALS: BMI 28.2
[2022-01-25 14:27] LABS: Erythrocyte Sedimentation Rate 12 MM/HR (0-15)
[2022-01-26 15:20] LABS: C-Reactive Protein Quant < 0.5 mg/dL (<1.0); Magnesium 2.2 mg/dL (1.6-2.3); Uric Acid 7.7 mg/dL (3.5-8.5)
[2022-01-26 15:22] LABS: Rheumatoid Factor < 8.6 IU/mL (<12.0)
[2022-01-27 19:17] LABS: CCP Antibodies IgG/IgA 3 units (0-19)
== END ==
PROVIDERS: PCP Family Medicine; Referring Provider Internal Medicine Rheumatology; Visit Provider Internal Medicine Rheumatology
DX: Z79.899 Other long term (current) drug therapy (principal); M06.4 Inflammatory polyarthropathy
CPT/HCPCS: 36415; 83735; 84550; 85651; 86140; 86200; 86430

== ENCOUNTER 2023-06-23 09:05 | Emergency (ER) | payer MEDICARE, OTHER, SELFPAY ==
[2021-04-21 02:18] VITALS: BMI 28.2
[2023-06-23] VITALS (7 sets, daily range): BP systolic 120–156; BP diastolic 77–90; PULSE 75–90; RESP 14–23; TEMP 36.7; O2SAT 95–97; BMI 30.2
--- NOTE | 2023-06-23 09:22 | DI.RAD.S_ITS ---
PROCEDURE: XR CHEST 1V INDICATIONS: chest pain TECHNIQUE: One view of the chest was acquired. COMPARISON: None. FINDINGS: Surgical changes and devices: None. Lungs and pleura: Mild infiltrate in lingula. No pleural effusions or pneumothorax. Mediastinum: Mediastinal contours appear normal. Heart size is normal. Bones and chest wall: No suspicious bony lesions. Overlying soft tissues appear unremarkable. IMPRESSION: Mild infiltrate in lingula suspicious for developing pneumonia. Dictated by: Markus Dang M.D. on 06/23/2023 at 10:21 Approved by: Markus Dang M.D. on 06/23/2023 at 10:22
--- NOTE | 2023-06-23 09:25 | ED_ITS ---
HPI - Arrhythmia/Palpitations General Chief Complaint: Arrhythmia/Palpitations Stated Complaint: sent by cardialogist, Afib Time Seen by Provider: 06/23/23 09:23 Source: patient Mode of arrival: Ambulatory Limitations: no limitations History of Present Illness HPI narrative: This is a 77-year-old male who presents with complaint of atrial fibrillation. Patient states he had had a heart monitor ordered by Dr. Palafox because there was concern about atrial fibrillation. He was waiting to follow up about that when last night he felt like his heart rate was different and fast. He checked on the monitor was about 118 to 120s when as high as 150s. He did have some substernal chest discomfort he describes as heartburn. He denies any shortness of breath. He states he has had a cough which has been nonproductive and has been resolving after he would gotten ill a week or 2 ago. Denies any nausea or vomiting. No new swelling in extremities. Was lightheaded for about 10 seconds last night but no syncope. No diaphoresis. Patient denies any other symptoms. Patient states their home monitor told him he had AFib. He called the it operations manager's office today who told him to come here because he had chest discomfort last night. Patient did take an extra metoprolol 50 mg last night but did not take his morning medications which include aspirin, amlodipine, rosuvastatin, metoprolol and magnesium. Patient has never had any cardiac interventions. Patient denies any allergies to drugs. No tobacco does drink 3 or 4 alcoholic drinks nightly, no recreational drugs. His primary care physician is Dr. Ramírez. Related Data Home Medications Medication Instructions Recorded Confirmed amlodipine 5 mg tablet 5 mg PO DAILY 11/24/18 04/21/21 aspirin 81 mg tablet,delayed 81 mg PO DAILY 11/24/18 04/21/21 release (Bartolo Low Dose Aspirin) metoprolol tartrate 25 mg tablet 25 mg PO DAILY 11/24/18 04/21/21 rosuvastatin 10 mg tablet 20 mg PO DAILY 11/24/18 04/21/21 Previous Rx's Medication Instructions Recorded amoxicillin 875 mg-potassium 1 tab PO BID #20 tabs 06/23/23 clavulanate 125 mg tablet Allergies Allergy/AdvReac Type Severity Reaction Status Date / Time lisinopril AdvReac Intermediate Cough Verified 06/23/23 09:22 BEE VENOM Allergy Severe CARRIES Uncoded 11/24/18 13:05 EPI PEN Review of Systems Review of Systems ROS Unobtainable: All systems reviewed & are unremarkable except as noted in HPI and below Patient History Social History household members: spouse Smoking Status: Former smoker Smoking Status: Former smoker alcohol intake frequency: 3 or more drinks per day Alcohol type: beer and wine Substance Use Type: does not use Exam Narrative Exam Narrative: GENERAL: Alert and oriented x three, well-appearing male in no acute distress. HEENT: Head normocephalic, atraumatic, EOMI, pupils reactive, face symmetric, moist mucous membranes NECK: Supple, full range of motion CARDIOVASCULAR: Irregularly irregular rate and rhythm without murmurs, rubs or gallops. No JVD. No edema bilateral lower extremities. RESPIRATORY: Breath sounds equal bilaterally, no wheezes rales or rhonchi. No tachypnea or accessory muscle use. ABDOMEN: Soft, nontender. Normoactive bowel sounds all 4 quadrants. No guarding or rebound, rigidity, no mass : No CVA tenderness EXTREMITIES: Normal range of motion, no clubbing or edema. Neurovascularly intact NEUROLOGICAL: Cranial nerves II through XII grossly intact. Moving all extremities SKIN: Warm, dry, no petechiae, no rashes or lesions. Initial Vital Signs Initial Vital Signs: Vital Signs Temperature 98.0 F 06/23/23 09:06 Pulse Rate 90 06/23/23 09:06 Respiratory Rate 15 06/23/23 09:06 Blood Pressure 156/90 H 06/23/23 09:06 Pulse Oximetry 97 06/23/23 09:06 Oxygen Delivery Method Room Air 06/23/23 09:06 Scores CHADS-VASc Congestive heart failure: no Hypertension: yes Age 75 years or older: yes Diabetes mellitus: no Stroke, TIA, or TE: no Vascular disease: no Age 65 to 74 years: no Sex category (female): Male CHADS-VASc Score: 3 Course Orders Ordered: ED Orders 06/23/23 09:20 Complete Blood Count AUTO DIFF Stat Comprehensive Metabolic Panel Stat Lipase Stat Magnesium Stat PTT Partial Thromboplastin Remi Stat Prothrombin Time INR Stat Troponin & CK Cardiac Panel Stat 06/23/23 09:22 XR chest 1V Stat EKG-12 Lead Stat Discontinued Medications Metoprolol Succinate (Metoprolol Er 25 Mg Tablet) 25 mg PO NOW ONE Stop: 06/23/23 09:46 Last Admin: 06/23/23 10:41 Dose: 25 mg Documented By: NIKKY Vital Signs Vital signs: Vital Signs - 8 hr 06/23/23 09:06 06/23/23 09:12 06/23/23 09:13 Temperature 98.0 F Pulse Rate 90 Respiratory Rate 15 Blood Pressure 156/90 H 156/90 H Pulse Oximetry 97 96 Oxygen Delivery Method Room Air 06/23/23 09:13 06/23/23 09:30 06/23/23 09:30 Temperature Pulse Rate 75 85 Respiratory Rate 23 Blood Pressure 137/84 Pulse Oximetry 96 97 Oxygen Delivery Method 06/23/23 10:00 06/23/23 10:00 06/23/23 10:30 Temperature Pulse Rate 84 Respiratory Rate 14 Blood Pressure 120/85 129/77 Pulse Oximetry 96 Oxygen Delivery Method 06/23/23 10:30 06/23/23 10:41 Temperature Pulse Rate 81 77 Respiratory Rate 15 Blood Pressure 129/77 Pulse Oximetry 95 Oxygen Delivery Method MDM - Arrhythmia/Palpitations Lab Data 06/23/23 09:20 06/23/23 09:20 Labs: Lab Results 06/23/23 Range/Units 09:20 WBC 9.9 (4.5-11.0) X10^3/uL RBC 4.60 (4.5-5.9) X10^6/uL Hgb 14.9 (13.5-17.5) g/dL Hct 43.8 (41-53) % MCV 95.3 (80-100) fL MCH 32.4 (26-34) PG MCHC 34.0 (30-36) % RDW 13.0 (11.6-14.8) % Plt Count 225 (150-400) X10^3/uL Neut % (Auto) 70.4 (50-75) % Lymph % (Auto) 17.0 L (25-40) % [place] % (Auto) 10.7 (3-14) % Eos % (Auto) 1.6 L (2-4) % Baso % (Auto) 0.3 (0-2) % Neut # (Auto) 7000 (3802-2106) /uL Lymph # (Auto) 1700 (3574-6512) /uL [place] # (Auto) 1100 H (0-900) /uL Eos # (Auto) 200 (0-450) /uL Baso # (Auto) 0 (0-100) /uL PT 11.2 (9.4-12.5) SECONDS INR 1.0 (0.9-1.3) APTT 34 (25.1-36.5) SECONDS Sodium 138 (137-145) mmol/L Potassium 4.3 (3.4-5.1) mmol/L Chloride 110 H (98-107) mmol/L Carbon Dioxide 23 (22-32) mmol/L BUN 16 (9-20) mg/dL Creatinine 0.84 (0.66-1.25) mg/dL Estimated GFR > 60 (>60) mL/min BUN/Creatinine Ratio 19.0 (6-22) Glucose 119 H (80-110) mg/dL Calcium 10.1 (8.4-10.2) mg/dL Magnesium 1.9 (1.6-2.3) mg/dL Total Bilirubin 1.0 (0.2-1.3) mg/dL AST 28 (17-59) IU/L ALT 22 (<50) IU/L Alkaline Phosphatase 63 (38-126) U/L Total Creatine Kinase 67 (55-170) U/L Troponin I < 0.012 (0.01-0.034) ng/mL Total Protein 7.4 (6.3-8.2) g/dL Albumin 4.5 (3.5-5.0) g/dL Globulin 2.9 (1.7-4.1) g/dL Albumin/Globulin Ratio 1.6 (1.0-2.8) Lipase 66 (23-300) U/L Imaging Data Chest x-ray: Radiologist's Impresson: Close Chest X-Ray (Signed) Markus Dang - 06/23/23 Wrist X-Ray (Signed) Aldo Batres - 09/19/21 Upper GI and Small Bowel X-Ray (Signed) Shakila Kiran - 04/21/21 Chest/Abdomen X-ray (Signed) Douglas Davison - 04/20/21 Abdomen Ultrasound (Signed) Douglas Davison - 04/20/21 Abdomen/Pelvis CT (Signed) Josh Valdes - 04/17/21 Telemetry Strips 11/24/18 Vascular Ultrasound (Signed) Jonas Martinez - 07/28/18 Launch?[address] [address] XRay Report Signed Patient: Andrade Chicas MR#: [id number] : 1945 Acct:[id number] Age/Sex: 77 / M Date of Service: 06/23/23 Loc: ED Accession Number: [id number] Procedure: XR chest 1V Ordering Provider: Jonelle Covington D.O. PROCEDURE: XR CHEST 1V INDICATIONS: chest pain TECHNIQUE: One view of the chest was acquired. COMPARISON: None. FINDINGS: Surgical changes and devices: None. Lungs and pleura: Mild infiltrate in lingula. No pleural effusions or pneumothorax. Mediastinum: Mediastinal contours appear normal. Heart size is normal. Bones and chest wall: No suspicious bony lesions. Overlying soft tissues appear unremarkable. IMPRESSION: Mild infiltrate in lingula suspicious for developing pneumonia. Dictated by: Markus Dang M.D. on 06/23/2023 at 10:21 Approved by: Markus Dang M.D. on 06/23/2023 at 10:22 ECG Data Attestation: I personally reviewed and interpreted this ECG as follows: Prior ECG tracings: available for review Interpretation: AFib rate 88 QRS of [address] No acute ST elevation or depression noted. Patient has prior from 09/19/2021 shows sinus rhythm with first-degree AV block. Prior EKG from that shows possible atrial fibrillation. MDM Narrative Medical decision making narrative: 77-year-old male suspected to have atrial fibrillation has had a monitor but had not followed for results felt his heart rate was very fast last night had some substernal chest pain that resolved. He states heart rate was up to 150s but was 118-128 most frequently. Is in the 90s currently. Patient is on medication for hypertension, dyslipidemia as well as baby aspirin. EKG shows AFib no acute ST changes does appear new from prior, patient had suspected atrial fibrillation so isn't a candidate for cardioversion today he is on aspirin 81 mg daily but no other anticoagulation with unknown initial onset of atrial fibrillation. Labs white count of 9.9 hemoglobin of 14 platelets of 225, chemistries show potassium of 4.3 chloride of 110 CO2 of 23 BUN 16 glucose of 119 calcium is 10.1 Mag 1.9, LFTs are negative. Troponin is negative patient's last episode of heartburn was greater than 6 hours ago. Chest x-ray shows mild infiltrate lingula suspicious for developing pneumonia. Patient notes he has had a cough he states it has been improving though. Discussed with patient about starting antibiotics. CHADS-VASC score is 3. Discussed recommendation when patient be to recommend full anticoagulation for stroke risk. After discussion with patient he would like to wait for full anticoagulation until falling but cardiology but is agreeable to increase to 324 mg daily. He does understand this is not full anticoagulation. He also notes that he is aware of the connection with AFib and ETOH ingestion and plans to stop drinking. Patient and I discussed can increase his metoprolol to twice daily if having elevated heart rate otherwise can continue it 50 mg once daily along with his other medications. Patient also noted to have little bit of infiltrate in the lingula on his chest x-ray he and his have noted he has been sick but has actually been improving quite a bit he still has a little bit of wet cough. Patient and I discussed starting oral antibiotic he would like to wait but was provided prescription so if he has not improving can start his treatment. Patient was given his home metoprolol dose he did not take his medication this morning. He continues to be rate controlled and was given his home dose. He does note he took an extra dose last night. Discharge Plan Departure Patient Disposition: Home Clinical Impression: Atrial fibrillation, Pneumonia Instructions: DI for Atrial Fibrillation Activity Restrictions/Additional Instructions: Follow up with your it operations manager Dr. Robbins, call for an appointment time. Continue with your current medications, can increase your metoprolol to 25 mg twice daily continue your other medications as prescribed. I would recommend starting anticoagulation for stroke prevention. If you feel uncomfortable taking the stronger anticoagulant follow up with your it operations manager to discuss your options but recommended least a full-dose (324 mg) aspirin daily all this does not completely protect you from stroke. Your chest x-ray showed a small amount of pneumonia in the lingula. Prescription for antibiotic was provided and attached your paperwork. Please return for recurrent or persistent symptoms, persistently fast heart rate, lightheadedness or passing out, new chest pain or shortness of breath, persistent vomiting companies swelling of extremities or other new or concerning changes. Prescriptions: New amoxicillin-pot clavulanate 875-125 mg tablet 1 tab PO BID Qty: 20 0RF No Action amlodipine 5 mg Tablet 5 mg PO DAILY rosuvastatin 10 mg Tablet 20 mg PO DAILY metoprolol tartrate 25 mg Tablet 25 mg PO DAILY aspirin [Bartolo Low Dose Aspirin] 81 mg Tablet,Delayed Release (Dr/Ec) 81 mg PO DAILY Referrals: Link Palafox MD [Physician] - Andrade Ramírze MD [Primary Care Provider] - Stand Alone Forms: Patient Portal/API
[2023-06-23 09:28] LABS: Add Manual Diff / Slide Review NO; Basophils Absolute Auto 0 /uL (0-100); Basophils Percent Auto 0.3 % (0-2); Eosinophils Absolute Auto 200 /uL (0-450); Eosinophils Percent Auto 1.6 % (2-4); Hematocrit 43.8 % (41-53); Hemoglobin 14.9 g/dL (13.5-17.5); Lymphocytes Absolute Auto 1700 /uL (1100-4500); Mean Corpuscular Hemoglobin 32.4 PG (26-34); Mean Corpuscular Volume 95.3 fL (80-100); Monocytes Absolute Auto 1100 /uL (0-900); Monocytes Percent Auto 10.7 % (3-14); Neutrophils Absolute Auto 7000 /uL (1500-7000); Neutrophils Percent Auto 70.4 % (50-75); Platelet Count 225 X10^3/uL (150-400); White Blood Cell Count 9.9 X10^3/uL (4.5-11.0)
[2023-06-23 09:38] LABS: Prothrombin Time 11.2 SECONDS (9.4-12.5)
[2023-06-23 09:40] LABS: PTT Partial Thromboplastin Tim 34 SECONDS (25.1-36.5)
[2023-06-23 09:42] LABS: Alanine Aminotransferase 22 IU/L (<50); Albumin 4.5 g/dL (3.5-5.0); Albumin Globulin Ratio 1.6 (1.0-2.8); Alkaline Phosphatase 63 U/L (38-126); Aspartate Aminotransferase 28 IU/L (17-59); Blood Urea Nitrogen 16 mg/dL (9-20); Calcium 10.1 mg/dL (8.4-10.2); Carbon Dioxide 23 mmol/L (22-32); Chloride 110 mmol/L (98-107); Creatine Kinase 67 U/L (55-170); Estimated Glomerular Filt Rate > 60 mL/min (>60); Globulin 2.9 g/dL (1.7-4.1); Glucose 119 mg/dL (80-110); HEMOLYSIS < 15 (0-50); Lipase 66 U/L (23-300); Magnesium 1.9 mg/dL (1.6-2.3); Potassium 4.3 mmol/L (3.4-5.1); Sodium 138 mmol/L (137-145); Total Protein 7.4 g/dL (6.3-8.2)
[2023-06-23 09:53] LABS: Troponin I < 0.012 ng/mL (0.01-0.034)
[2023-06-23] MEDS: METOPROLOL ER 25 MG TABLET PO (10:41)
== END 2023-06-23 11:04 | disposition home or self-care (01) ==
PROVIDERS: Emergency Provider Emergency Medicine; PCP Family Medicine
DX: I48.91 Unspecified atrial fibrillation (principal); J18.9 Pneumonia, unspecified organism; Z87.891 Personal history of nicotine dependence
CPT/HCPCS: 71045; 80053; 82550; 83690; 83735; 84484; 85025; 85610; 85730; 93005; 99283; 99284

== ENCOUNTER → 2023-09-07 07:37 | Outpatient (CLI) | payer MEDICARE, OTHER, SELFPAY ==
[2021-04-21 02:18] VITALS: BMI 28.2
--- NOTE | 2023-09-07 07:38 | DI.NM.S_ITS ---
PROCEDURE: NM MILA PERF SPECT REST & STR Rest and exercise myocardial perfusion SPECT with gated imaging and ejection fraction RADIOPHARMACEUTICAL: 12.1 mCi Tc-99m sestamibi IV at rest and 26 mCi Tc-99m sestamibi IV at peak exercise. A one day-protocol was performed. INDICATIONS: PAF TECHNIQUE: Radiopharmaceutical was injected at peak stress test, and also at rest. SPECT images were obtained. SPECT myocardial perfusion images were displayed in short axis, horizontal long axis, and vertical long axis views. Gated images were reviewed using [employer] software. COMPARISON: None. CARDIAC STRESS: A standard [place] treadmill exercise tolerance test was performed by the patient under the supervision of an attending staff. The patient exercised for 9 minutes and 0 seconds; functional aerobic impairment (BRENT) is -47%. Hemodynamic data: There is normal blood pressure and heart rate response to exercise stress. Patient achieved 88% of maximum predicted heart rate at peak exercise. Symptoms: Patient denied chest pain during exercise. EKG: No diagnostic EKG changes of ischemia; frequent PVCs during exercise. FINDINGS: Raw data: There is good myocardial labeling by radiotracer. No significant motion artifacts. Jzdq-ya-yyeor ratio is 0.28 (normal is less than 0.38 for sestamibi tracer, and less than 0.50 for thallium tracer). Left ventricle function: Gated images demonstrate normal left ventricle wall thickening. No segmental wall motion abnormality. No transient ischemic dilation; TID is 0.82 (normal less than 1.3). The left ventricle resting end-diastolic volume is 132 mL. Left ventricle stress ejection fraction is 67%; normal values are above 45%. Myocardial perfusion: Moderate intense fixed inferior wall defect that resolves with prone imaging, suggesting artifact than prior infarction. Severe fixed apical defect that persists with prone imaging but it still likely to be artifact as apical wall motion is normal. No ischemia. IMPRESSION: Low risk, probably normal treadmill nuclear stress test. 1) Moderate intense fixed inferior wall defect that resolves with prone imaging, suggesting artifact than prior infarction. Severe fixed, focal apical defect that persists with prone imaging but it still likely to be artifact as apical wall motion is normal. Old non-transmural apical infarction can't be excluded. No ischemia. 2) Normal left ventricular size, wall motion, and systolic function (EF post stress 67%). 3) No diagnostic ST changes during exercise or recovery. 4) Frequent PVCs during exercise. 5) No angina during the study. 6) Excellent exercise tolerance (10.1METs, BRENT -47%). Target heart rate reached. Appropriate BP response to exercise. 7) No prior nuclear stress test available for comparison. Dictated by: Uriel Loredo MD on 09/07/2023 at 17:06 Approved by: Uriel Loredo MD on 09/07/2023 at 17:10
== END ==
LOC: NUCM 07:37
PROVIDERS: PCP Family Medicine; Referring Provider Internal Medicine Cardiovascular Disease; Visit Provider Internal Medicine Cardiovascular Disease
DX: I48.0 Paroxysmal atrial fibrillation (principal)
CPT/HCPCS: 78452; 93017; A9502